=== PATIENT | male | born 1995 | race Caucasian/White ===

== ENCOUNTER 2019-01-17 14:11 | Outpatient (CLI) | payer SELFPAY | END 2019-01-17 14:12 | disposition EMS.NT | LOC: EMS 14:11 | PROVIDERS: ATTEND Surgery | DX: Z03.89 Encounter for observation for other suspected diseases and conditions ruled out (principal) ==

== ENCOUNTER 2021-03-01 10:53 | Outpatient (CLI) | payer MEDICAID ==
--- NOTE | 2021-03-02 14:33 | Ultrasound Report ---
PROCEDURE: Testicle INDICATIONS: Scrotal mass TECHNIQUE: Real-time scanning was performed of the scrotum and testicles, with image documentation. Color and p ulse Doppler interrogation was performed of both testicles. COMPARISON: None. FINDINGS: The patient's palpable area of concern corresponds to an 8 mm cyst in the epididymal head. The right epididymis is unremarkable. The left epididymis is also normal in appearance. Both testicles are norm al in size with no evidence of an intratesticular mass. Normal Doppler arterial and venous blood flow within both testicles. No evidence of varicocele or hydrocele. IMPRESSION: The patient's palpable area of concern corresponds to 8 mm cyst. Otherwise normal scrotal ultrasound. Reviewed by: Edgar Pardo MD on 03/02/2021 2:31 PM PDT Approved by: Edgar Pardo MD on 03/02/2021 2:31 PM PDT Station ID: [id number]
== END 2021-03-01 10:54 | disposition home or self-care (01) ==
LOC: DI 10:53
PROVIDERS: ATTEND Registered Nurse
DX: N50.3 Cyst of epididymis (principal)